=== PATIENT | male | born 1995 | race Caucasian/White ===

== ENCOUNTER 2020-03-31 10:03 | Emergency (ER) | payer OTHER | END 2020-03-31 11:05 | disposition home or self-care (01) | LOC: JVIRT 10:03 | DX: Z03.818 Encounter for observation for suspected exposure to other biological agents ruled out (principal) | CPT/HCPCS: C9803; Q3014-GT; U0003 ==

== ENCOUNTER 2020-04-03 10:07 | Emergency (ER) | payer OTHER | END 2020-04-03 11:22 | disposition home or self-care (01) | LOC: JVIRT 10:07 | DX: Z03.818 Encounter for observation for suspected exposure to other biological agents ruled out (principal) | CPT/HCPCS: C9803; Q3014-GT; U0003 ==

== ENCOUNTER 2020-04-17 11:19 | Emergency (ER) | payer OTHER | END 2020-04-17 11:42 | disposition home or self-care (01) | LOC: JVIRT 11:19 | DX: Z11.59 Encounter for screening for other viral diseases (principal) | CPT/HCPCS: C9803; Q3014-GT; U0003 ==